=== PATIENT | female | born 1945 | race Caucasian/White ===

== ENCOUNTER 2018-02-28 08:12 | Day surgery (SDC) | payer MEDICARE, OTHER ==
[2018-02-22 14:49] VITALS: BP 153/95
[~2018-02-28] VITALS: Ht 167.6 cm; Wt 89.5 kg
[~2018-02-28 08:12] MED LIST: BIOT25005 PO; BUPIVACAINE/PF 0.5% ONE; ESCI20TA PO; HYDR25TA6 PO; SIMV20TA3 PO; VITAMIN D PO
[2018-02-28] MEDS ORDERED: FENTANYL PF 100 MCG/2ML ONE (08:34)
[2018-02-28] MEDS ORDERED: MIDAZOLAM 1 MG/ML, 2ML ONE (08:34)
[2018-02-28] MEDS ORDERED: LACTATED RINGERS 1,000 ML IV SCH (08:36)
[2018-02-28] MEDS ORDERED: LIDOCAINE-MPF 1%, 2ML INFIL ONE (09:00)
[2018-02-28] MEDS ORDERED: CEFAZOLIN 1,000 MG ONE ×3 (09:27)
[2018-02-28] MEDS ORDERED: PROPOFOL 10 MG/ML, 20ML ONE (09:27)
[2018-02-28] MEDS ORDERED: morphine SULFATE 10 MG/ML, 1ML IV PRN (10:00)
[2018-02-28] MEDS ORDERED: OXYcodone 5 MG/5 ML ORAL.SOL UDC PO PRN (10:00)
[2018-02-28] MEDS ORDERED: ONDANSETRON 2MG/ML, 2ML IVPush PRN (10:00)
[2018-02-28] MEDS ORDERED: ACETAMINOPHEN 325 MG TABLET PO PRN (10:00)
[2018-02-28] MEDS ORDERED: FENTANYL PF 100 MCG/2ML IV PRN (10:00)
[2018-02-28] MEDS ORDERED: MIDAZOLAM 1 MG/ML, 2ML IV PRN (10:00)
[2018-02-28] MEDS ORDERED: PROMETHAZINE 12.5 MG SUPP PR PRN (10:00)
[2018-02-28] MEDS ORDERED: LORazepam 2 MG/ML, 1ML IVPush PRN (10:00)
[2018-02-28] MEDS ORDERED: PROMETHAZINE 25 MG/ML, 1ML IV PRN (10:00)
[2018-02-28] MEDS ORDERED: ONDANSETRON 2MG/ML, 2ML ONE (15:12)
[2018-02-28] MEDS ORDERED: DEXAMETHASONE 4 MG/ML, 1ML ONE (15:12)
== END 2018-02-28 11:40 ==
LOC: OUT 08:12
PROVIDERS: ATTEND Orthopaedic Surgery
DX: G56.02 Carpal tunnel syndrome, left upper limb (principal)
CPT/HCPCS: 64721; J0690; J1100; J2250; J2405; J2704; J3010; J3490; J7120

== ENCOUNTER → 2018-06-28 | Outpatient (CLI) | payer MEDICARE, OTHER ==
[~2018-06-28] MED LIST changes: -BUPIVACAINE/PF 0.5% ONE
[2018-06-28 10:37] LABS: ALBUMIN 3.6 g/dL (3.4-5.0); ANION GAP 4 mmol/L (5-15); CALCIUM 8.6 mg/dL (8.5-10.1); CHLORIDE 102 mmol/L (98-107)
[2018-06-28 10:40] LABS: ALANINE AMINOTRANSFERASE 21 U/L (12-78); ALKALINE PHOSPHATASE 74 U/L (45-117); BILIRUBIN,TOTAL 0.4 mg/dL (0.2-1.0); CREATININE 0.59 mg/dL (0.55-1.02)
== END | disposition home or self-care (01) ==
LOC: STAR 09:20
PROVIDERS: ATTEND Orthopaedic Surgery
DX: Z01.818 Encounter for other preprocedural examination (principal); G56.01 Carpal tunnel syndrome, right upper limb
CPT/HCPCS: 36415; 80053; 93005

== ENCOUNTER 2018-07-04 07:34 | Day surgery (SDC) | payer MEDICARE, OTHER ==
[~2018-07-04] VITALS: Ht 167.6 cm; Wt 88.6 kg
[~2018-07-04 07:34] MED LIST changes: +BUPR75TA6 PO; +LISI5TAB7 PO
[2018-07-04] MEDS ORDERED: LACTATED RINGERS 1,000 ML IV SCH (08:08)
[2018-07-04] MEDS ORDERED: BUPIVACAINE/PF 0.5% ONE (08:17)
[2018-07-04] MEDS ORDERED: ACETAMINOPHEN 500 MG TABLET PO ONE (08:30)
[2018-07-04] MEDS ORDERED: GABAPENTIN 300 MG CAPSULE PO ONE (08:30)
[2018-07-04] MEDS ORDERED: ONDANSETRON ODT 8 MG PO ONE (08:30)
[2018-07-04] MEDS ORDERED: FENTANYL PF 100 MCG/2ML ONE (08:31)
[2018-07-04 08:32] VITALS: BP 146/87
[2018-07-04] MEDS ORDERED: CEFAZOLIN 1,000 MG ONE (08:52)
[2018-07-04] MEDS ORDERED: DEXAMETHASONE 4 MG/ML, 1ML ONE (08:52)
[2018-07-04] MEDS ORDERED: PROPOFOL 10 MG/ML, 20ML ONE (08:52)
[2018-07-04] MEDS ORDERED: BUPIVACAINE/PF-EPI 0.5% 1:200K INFIL ONE (08:54)
[2018-07-04] MEDS ORDERED: MEPERIDINE/PF 25MG/0.5ML IVPush PRN (09:00)
[2018-07-04] MEDS ORDERED: ONDANSETRON 2MG/ML, 2ML IV PRN (09:00)
[2018-07-04] MEDS ORDERED: LABETALOL 5MG/ML, 20ML IV PRN (09:00)
[2018-07-04] MEDS ORDERED: MIDAZOLAM 1 MG/ML, 2ML IV PRN (09:00)
[2018-07-04] MEDS ORDERED: FENTANYL PF 100 MCG/2ML IV PRN (09:00)
[2018-07-04] MEDS ORDERED: HYDROmorphone 1 MG/ML, 1ML IV PRN (09:00)
[2018-07-04] MEDS ORDERED: OXYcodone 5 MG/5 ML ORAL.SOL UDC PO PRN (09:00)
[2018-07-04] MEDS ORDERED: PROMETHAZINE 25 MG/ML, 1ML IV PRN (09:00)
[2018-07-04] MEDS ORDERED: SCOPOLAMINE PATCH, 1.5MG PATCH.TD72 TD PRN (09:00)
== END 2018-07-04 11:28 | disposition home or self-care (01) ==
LOC: OUT 07:34
PROVIDERS: ATTEND Orthopaedic Surgery
DX: G56.01 Carpal tunnel syndrome, right upper limb (principal); I10 Essential (primary) hypertension; E78.5 Hyperlipidemia, unspecified; Z98.890 Other specified postprocedural states; Z79.899 Other long term (current) drug therapy
CPT/HCPCS: 64721; J0690; J1100; J2704; J3010; J3490; J7120; Q0162